=== PATIENT | male | born 1950 | race Caucasian/White ===

== ENCOUNTER 2024-07-10 14:24 | Emergency (ER) | payer BC, SELFPAY ==
[2024-07-10 14:27] VITALS: BP 139/82
[2024-07-10 14:58] LABS: Urine Albumin 2+ (Neg - Trace); Urine Bilirubin Negative (Negative); Urine Character Slightly Cloudy (Clear); Urine Color Yellow; Urine Glucose Negative (Negative); Urine Ketone 1+ (Negative); Urine Leukocyte 2+ (Negative); Urine Nitrite Negative (Negative); Urine Occult Blood 3+ (Negative); Urine Specific Gravity 1.025 (<1.030); Urine Urobilinogen 1+ (Neg - 1+)
[2024-07-10 15:07] LABS: ALT (SGPT) 73 U/L (0-50); AST (SGOT) 69 U/L (17-59); Albumin 3.9 g/dl (3.5-5.0); Alkaline Phosphatase 48 U/L (38-126); Blood Urea Nitrogen 18 mg/dl (9-20); Calcium 9.4 mg/dl (8.4-10.2); Carbon Dioxide 27 mmol/L (22-30); Chloride 100 mmol/L (98-107); Glucose 136 mg/dl (70-99); Potassium 4.7 mmol/L (3.5-5.1); Sodium 134 mmol/L (135-145); Total Protein 7.2 g/dl (6.3-8.2); eGFR > 60.00
[2024-07-10 15:08] LABS: % Basophils 0.4 % (0-2); % Eosinophils 3.8 % (0-6); % Immature Granulocytes 0.4 % (0-0.5); % Lymphocytes 7.5 % (20.5-51.1); % Neutrophils 82.9 % (42.2-75.2); Absolute Eosinophils 0.4 10^3/uL (0-0.7); Absolute Lymphocytes 0.8 10^3/uL (1.2-3.4); Absolute Monocytes 0.5 10^3/uL (0.1-0.6); Absolute Neutrophils 8.3 10^3/uL (1.4-6.5); Hematocrit 43.9 % (39.0-52.0); Mean Corp Hgb Conc. 34.2 g/dL (33.0-37.0); Mean Corpuscular Volume 93.6 fL (80.0-94.0); Mean Platelet Volume 10.2 fL (7.4-10.4); Nucleated Red Blood Cells % 0 % (-); Platelet Count 110 10^3/uL (130-400); Red Blood Cell Count 4.69 10^6/uL (4.70-6.10); Red Cell Dist. Width 12.8 % (11.5-14.5)
[2024-07-10 15:17] LABS: COVID-19 Antigen Negative (Negative)
[2024-07-10 15:18] LABS: Urine Squamous Cell 0-2 /LPF (Few)
[2024-07-10 15:19] LABS: Urine Bacteria Few (Negative); Urine White Cell 16-20 /HPF (0-5)
[2024-07-10 16:03] VITALS: BP 124/84
[2024-07-10 16:05] VITALS: BP 124/84; BMI 26.1
--- NOTE | 2024-07-10 16:13 | ED.GENMED ---
History of Present Illness
General
Chief Complaint: Fever
Source: patient
Exam Limitations: none
Time Seen by Provider: 07/10/24 15:52
History of Present Illness
History of Present Illness:
See MDM
Past History
Past History
ED Past Medical History: Other (Kidney stones, herniated back lower back disc, previous cellulitis bilateral lower extremities)
ED Past Surgical History: Tonsilectomy and Urological (Lithotripsy)
Social History
Tobacco: Non-smoker
Alcohol: Occasional
Drug: None
Personal:
Living: with family
Family History
Family History: Diabetes and Other (Father with Parkinson's, mother with lung cancer)
Phy Exam
Physical Exam
Physical Exam:
See MDM
Course
Orders/Labs/Results
Orders:
Orders
07/10/24 14:40
COVID-19 Antigen Urgent
Source: Nasal Swab
Complete Blood Count/With Diff Urgent
Comprehensive Metabolic Panel Urgent
Urinalysis Reflex To Culture Urgent
Date Specimen was Collected: 07/10/24
Time Specimen was Collected: 14:32
Urine Microscopic Reflex Cult Urgent
Influenza A+B Rapid Molecular Urgent
OLY Source: Nasal Swab
Specimen Description:
Date Specimen was Collected: 07/10/24
Time Specimen was Collected: 14:32
Urine Culture Urgent
OLY Source: U
Specimen Description:
Date Specimen was Collected: 07/10/24
Time Specimen was Collected: 14:32
07/10/24 16:11
Cephalexin Monohydrate [Keflex] 500 mg PO NOW STA
Ibuprofen [Motrin] 600 mg PO NOW STA
Sulfamethox./Trimethoprim Ds [Bactrim Ds 800 mg/160 mg] 1 tablet PO NOW STA
Abnormal Lab Results
07/10/24
14:40
RBC 4.69 L 10^6/uL
(4.70-6.10)
MCH 32.0 H pg
(27.0-31.0)
Plt Count 110 L 10^3/uL
(130-400)
Absolute Neuts (auto) 8.3 H 10^3/uL
(1.4-6.5)
Absolute Lymphs (auto) 0.8 L 10^3/uL
(1.2-3.4)
Neutrophils % 82.9 H %
(42.2-75.2)
Lymphocytes % 7.5 L %
(20.5-51.1)
Sodium 134 L mmol/L
(135-145)
Glucose 136 H mg/dl
(70-99)
AST 69 H U/L
(17-59)
ALT 73 H U/L
(0-50)
Urine Ketones 1+ A
(Negative)
Ur Occult Blood Reflex 3+ A
(Negative)
Leukocyte Esterase Rfl 2+ A
(Negative)
Urine RBC 3-6 A /HPF
(0-2)
Urine WBC (Reflex) 16-20 A /HPF
(0-5)
Urine Bacteria (Reflex) Few A
(Negative)
Urine Albumin (Reflex) 2+ A
(Neg - Trace)
07/10/24 14:40
07/10/24 14:40
Vital Signs
Initial and Last Documented VS:
Initial Vital Signs
Temp Pulse Resp BP Pulse Ox
100.0 F 116 18 139/82 96
07/10/24 14:27 07/10/24 14:27 07/10/24 14:27 07/10/24 14:27 07/10/24 14:27
Last Documented Vital Signs
Temp Pulse Resp BP Pulse Ox
98.6 F 89 16 124/84 94
07/10/24 16:05 07/10/24 16:05 07/10/24 16:05 07/10/24 16:05 07/10/24 16:05
MDM/Problems Addressed
Differential Diagnosis Includes:
HPI and MDM Narrative:
74-year-old male presenting with fevers for the past 24 hours or so. Patient did have recent surgery on his left. Soon after the surgery, he was on clindamycin but the surgical site looked okay so he was taken off of clindamycin. Due to his
neuropathy, he has no feeling in his feet. He had not taken off the dressing as instructed by his master planner. When they touched base with the master planner, he was sent into the emergency department for evaluation
Blood work was done prior to my assessment. He has normal white blood cell count but there is a left shift. Urinalysis was also performed showing evidence of bacteruria but he is denying any urinary symptoms. COVID and flu negative
However, when I undressed the left foot, there is clearly cellulitic changes. The gauze that was removed had some dried pus over the surgical site. I am unable to express any discharge from the sutures.
I discussed admission versus. Patient states he feels totally fine going home. I will start Keflex and Bactrim and both he and his will touch base with the master planner tomorrow. They both understand strict return precautions
Physical exam
General: Well appearing and non-toxic
HEENT: protecting airway
Neck: appears supple
CV: No evidence of cyanosis
Resp: No accessory muscle use
Abd: Non-distended
Extremities: Stitches to dorsum of left lateral foot with surrounding cellulitic changes
Neuro: alert
Psych: Normal affect
Skin: Intact
Problems Addressed including Acute and Chronic Conditions affecting care:
1. Postsurgical infection
Acuity: acute
Prognosis: stable
Details: Patient is well-appearing nontoxic. Will start Keflex and Bactrim and he will follow-up with the master planner
Differential Diagnosis (but not limited to): UTI, postsurgical infection, viral syndrome
Testing considered: Chest x-ray but he denies any significant shortness of breath
Drug therapy (if applicable): OTC meds, please see d/c instruction regarding Rx drugs
Amount and/or Complexity of Data Reviewed
Clinical info obtained from: Patient
External data reviewed: N/A
Labs I independently reviewed (but not limited to): Normal white blood cell count but with left shift
Radiology: N/A
Pulse Ox: not hypoxic
EKG independently reviewed: N/A
Corking Machine Operator: N/A
Critical Care: N/A
Risk of Complication:
Social Determinants of health: Good social support
Discussed with other providers: N/A
Escalation of Care includes Admit/Obs: After being observed in the Emergency Department, pt stable for discharge.
Occasional wrong word or 'sound a like' substitutions may have occurred due to the inherent limitations of voice recognition software. Read the chart carefully and recognize, using context, where substitutions have occurred.
*Critical Care Note
Total Time (30-74mins, 75-104mins- exclusive of procedures): Not Applicable
ED Attending Note
-
Portions of this chart may have been created with voice recognition software.� Occasional wrong word or��sound alike� substitutions may have occurred due to the inherent limitations of voice recognition software.
Discharge Plan
Departure
Patient Disposition: Home (Routine Discharge)
Date of Disposition: 07/10/24
Time of Disposition: 16:19
Patient with high blood pressure during this ER visit?: No
Discharge Problem:
Post-operative infection
Instructions: Cellulitis (skin infection) in adults - ED discharge instructions
Prescriptions:
New
sulfamethoxazole-trimethoprim [Bactrim DS] 800-160 mg tablet
1 tab PO BID 10 Days Qty: 20 0RF
cephalexin 500 mg capsule
500 mg PO BID 10 Days Qty: 20 0RF
No Action
multivitamin 1 EACH tablet
1 ea PO DAILY
ascorbic acid (vitamin C) [Vitamin C] 1,000 MG tablet
1,000 mg PO .1 TO 2X WEEKLY
omega 2-sjl-ijf-fish oil [Fish Oil] 1 EACH capsule
1 ea PO DAILY
Advil
400 mg PO HS
apple cider vinegar 500 MG tablet
500 mg PO DAILY
melatonin 5 MG tablet
5 mg PO
cephalexin [Keflex] 500 MG capsule
500 mg PO Q12 Qty: 14 0RF
doxycycline hyclate 100 MG capsule
100 mg PO Q12 Qty: 14 0RF
cephalexin 500 mg capsule
500 mg PO BID Qty: 14 0RF
Activity Restrictions/Additional Instructions:
Watch for worsening signs of infection: fever over 100.5', increasing pain, red streaks around wound, swelling, or increasing drainage of pus. If any of these happen, return to ED promptly. Make sure that you take all your antibiotics as directed
and finish your prescription even if you feel better before the bottle is empty
Please return for any worsening symptoms.
You may return at any time if you have further concerns.
Please follow up with your master planner at the first available appointment, preferably this week.
Thank you for choosing [facility].
Interventions
Interventions:
*Risk Screen - Suicide Last Done: 07/10/24 14:27
*General Assessment Last Done: 07/10/24 14:27
*Neglect/Abuse Screening Last Done: 07/10/24 16:05
ED- Fall Risk Assessment Last Done: 07/10/24 16:05
*ED COVID-19 Vaccine History Last Done: 07/10/24 14:27
ED- Neurological Assessment Last Done: 07/10/24 16:05
ED-Skin Assessment Last Done: 07/10/24 16:05
Discharge Date and Time
Print Language: [place]
[2024-07-10] MEDS: BACTRIM DS 800 MG/160 MG 1 TABLET PO (16:41)
[2024-07-10] MEDS: MOTRIN 600 MG PO (16:41)
[2024-07-10] MEDS: KEFLEX 500 MG PO (16:41)
== END 2024-07-10 16:54 | disposition home or self-care (01) ==
LOC: EMR 14:24
PROVIDERS: Emergency Medicine; EMERGENCY PHYSICIAN Student in an Organized Health Care Education/Training Program; FAMILY PHYSICIAN Family Medicine
DX: T81.40XA Infection following a procedure, unspecified, initial encounter (principal); R82.71 Bacteriuria; Z11.52 Encounter for screening for COVID-19; G62.9 Polyneuropathy, unspecified; Z87.442 Personal history of urinary calculi
CPT/HCPCS: 99283; 80053; 81003; 81015; 85025; 87086; 87502; 87811